=== PATIENT | female | born 1995 | race Hispanic/Latino ===

== ENCOUNTER 2023-09-15 20:27 | Day surgery (SDC) | payer SELFPAY ==
[2023-09-15 21:44] VITALS: BMI 35.2
== END 2023-09-15 22:21 | disposition home or self-care (01) ==
LOC: CSHLD/OP 20:27
PROVIDERS: ATTEND Obstetrics & Gynecology
DX: O99.891 Other specified diseases and conditions complicating pregnancy (principal); R10.9 Unspecified abdominal pain; O23.42 Unspecified infection of urinary tract in pregnancy, second trimester; N39.0 Urinary tract infection, site not specified; O99.342 Other mental disorders complicating pregnancy, second trimester; F31.9 Bipolar disorder, unspecified; Z79.899 Other long term (current) drug therapy; Z3A.23 23 weeks gestation of pregnancy